=== PATIENT | male | born 1985 | race Caucasian/White ===

== ENCOUNTER → 2021-04-01 | Outpatient (CLI) | payer OTHER ==
--- NOTE | 2021-04-02 13:29 | SLEEPHOME ---
DATE: 04/01/2021 ORDERED BY: Sophia Hager Diagnostic home sleep testing was performed due to concern for the obstructive sleep apnea syndrome in this patient with a history of snoring. For testing, a nocturnal T3 respiratory monitoring device was used. Continuous record was made of pulse, oxygen saturation, air flow, chest and abdominal strain, and body position. There was 9 hours and 53 minutes of data reviewed. There was 6 hours and 51 minutes marked as time in bed. During the interval marked time in bed, there were 352 respiratory events identified of 10 seconds in duration or greater for a respiratory event index of 51.3 per hour. The events were primarily obstructive. Thirty-one mixed and central apneas were appreciated. Baseline pulse rate 57. Pulse rate ranged 40-93. Baseline saturation was 93%. Saturations fell to 82%, and testing was performed in both the supine and nonsupine positions. IMPRESSION: Abnormal home sleep testing with repetitive respiratory events and oxygen desaturations to 82% with a respiratory event index of 51.3 is consistent with the obstructive sleep apnea syndrome. RECOMMENDATION: The patient should be encouraged to undergo formal sleep evaluation.
== END ==
LOC: M SLEEP HO 10:42
PROVIDERS: ATTEND Nurse Practitioner Family
DX: G47.33 Obstructive sleep apnea (adult) (pediatric) (principal)